=== PATIENT | male | born 1970 | race Caucasian/White ===

== ENCOUNTER → 2022-05-09 12:09 | Outpatient (CLI) | payer OTHER, SELFPAY ==
[2022-05-09 14:07] LABS: Cholesterol 195 mg/dL (140-199); HDL Cholesterol 43 mg/dL (40-60); LDL Cholesterol Calculated 135 mg/dL (<100); Triglycerides 85 mg/dL (35-150)
== END ==
PROVIDERS: PCP Registered Nurse General Practice; Referring Provider Registered Nurse General Practice; Visit Provider Registered Nurse General Practice
DX: Z00.00 Encounter for general adult medical examination without abnormal findings (principal)
CPT/HCPCS: 36415; 80061